=== PATIENT | male | born 1950 | race Caucasian/White ===

== ENCOUNTER → 2019-05-22 | Outpatient (CLI) | payer OTHER ==
--- NOTE | 2019-05-22 15:42 | PCVCIMAG ---
APPROVED REPORT Study performed: 05/22/2019 13:57:27 Exam: Stress Echocardiogram Indication: elevated coronary calcium score, htn, hlp Patient Location: Echo lab Stress Nurse: Nohelia Andrews RN Status: routine Ht: 5 ft 7 in HR: 82 bpm BP: 112/70 mmHg Rhythm: NSR Procedure The patient underwent an Exercise Stress Test using the Lorenzo Protocol. Blood pressure, heart rate, and EKG were monitored. An Echocardiogram was performed by facility technician in four stages in quad fashion. At peak stress, four selected images were obtained and placed side by side with resting images for comparison. Stress Test Details Stress Test: Exercise stress testing was performed using a Lorenzo protocol. HR Resting HR: 82 bpmMax Heart Rate (APMHR): 151 bpm Max HR Achieved: 139 bpmTarget HR (85% APMHR): 128 bpm % of APMHR: 92 Recovery HR: 97 bpm HR response to stress: Normal HR response to stress BP Resting BP: 112/70 mmHg Max BP: 174/70 mmHg Recovery BP: 144/82 mmHg BP response to stress: Normal blood pressure response to stress. ECG Resting ECG: Sinus Rhythm Stress ECG: Sinus Rhythm ST Change: Normal Arrhythmia: None Recovery ECG: Sinus Rhythm Recovery ST Change: Normal Recovery Arrhythmia: None Clinical Reason for Termination: Maximal effort Stress Symptoms: Dyspnea Exercise duration: 5 min sec Highest Stage Achieved: Stage 2: 2.5 mph at 12% grade. Exercise capacity: 7 METs Overall Exercise Capacity for Age: Normal Scale: Active Angina Score: None Stress ECG Conclusion 1 subjectively negative for ischemia 2. electrocardiographically negative for ischemia 3. reduced functional capacity Pre-Stress Echo The resting Echocardiogram showed normal left ventricular contractility with an estimated Ejection Fraction of about >55%. Normal wall motion in all segments on baseline images. Post-Stress Echo The stress Echocardiogram showed normal left ventricular contractility with an estimated Ejection Fraction of about 65%. Normal augmentation of wall motion in all segments on post stress images. Clinical No clinical or ECG evidence for ischemia. Conclusion Clinical Response: Non-ischemic Exercise Capacity: Average Stress ECG Response: Non-ischemic Stress Echo Images: Non-ischemic The left ventricle is normal in size and wall thickness in both the rest and stress images. Normal color doppler. No stenosis or regurgitation seen in the aortic and mitral valves. Tricuspid regurgitation with PAP of 25 mmHg. Mild-moderate pulmonic regurgitation. 1. low risk study Other Information Study Quality: Adequate <Conclusion> The left ventricle is normal in size and wall thickness in both the rest and stress images. Normal color doppler. No stenosis or regurgitation seen in the aortic and mitral valves. Tricuspid regurgitation with PAP of 25 mmHg. Mild-moderate pulmonic regurgitation. 1. low risk study
== END | disposition home or self-care (01) ==
LOC: PCVCIMAG 13:31
PROVIDERS: ATTEND Internal Medicine
DX: I37.1 Nonrheumatic pulmonary valve insufficiency (principal); I25.10 Atherosclerotic heart disease of native coronary artery without angina pectoris; I10 Essential (primary) hypertension; E78.5 Hyperlipidemia, unspecified
CPT/HCPCS: 93325; 93351